=== PATIENT | male | born 1955 | race Caucasian/White ===

== ENCOUNTER 2022-05-16 20:02 | Emergency (ER) | payer OTHER ==
[~2022-05-16] VITALS: Ht 190.5 cm; Wt 90.7 kg
[2022-05-16 21:26] LABS: BILIRUBIN Negative (Negative); BLOOD 1+ (Negative); CLARITY Clear (Clear); COLOR Yellow (Yellow); GLUCOSE Negative (Negative); KETONE Negative (Negative); LEUKO ESTERASE 3+ (Negative); NITRITE Negative (Negative); UROBILINOGEN 0.2 E.U./dl (0.0-1.0)
[2022-05-16 21:50] LABS: BACTERIA 1+; WBC 31-40 wbc/hpf (0-5)
[2022-05-16] MEDS ORDERED: CIPRO500 MG PO (22:03)
[2022-05-17 00:01] VITALS: BP 147/62
== END 2022-05-17 01:05 | disposition home or self-care (01) ==
LOC: ED 20:02
PROVIDERS: Emergency Medicine
DX: T83.098A Other mechanical complication of other urinary catheter, initial encounter (principal); N39.0 Urinary tract infection, site not specified; Z88.0 Allergy status to penicillin; Z88.5 Allergy status to narcotic agent; Z91.012 Allergy to eggs; Z96.653 Presence of artificial knee joint, bilateral; Z90.49 Acquired absence of other specified parts of digestive tract; Z98.890 Other specified postprocedural states; Y84.8 Other medical procedures as the cause of abnormal reaction of the patient, or of later complication, without mention of misadventure at the time of the procedure; Y92.89 Other specified places as the place of occurrence of the external cause